=== PATIENT | male | born 1950 | race Caucasian/White ===

== ENCOUNTER 2018-02-17 09:37 | Outpatient (CLI) | payer MEDICARE, OTHER ==
[2018-02-17 10:28] LABS: Estimated GFR-MDRD - POC Greater than 90
--- NOTE | 2018-02-17 12:07 | CT ---
CT OF THE ABDOMEN AND PELVIS WITH CONTRAST: Comparison: None. History: Prostate cancer, status post prostatectomy. Rising PSA. Technique: Multiple contiguous axial images were obtained in a CT of the abdomen and pelvis with cont rast. PO contrast was administered. Coronal reformats were performed. FINDINGS: There are subcentimeter hyperdensities in the liver which are too small to definitely characterize bu t likely represent small cysts. The gallbladder, kidneys, adrenal glands, spleen, and pancreas are un remarkable. No free air, free fluid, or stranding changes are seen in the abdomen or pelvis. The large and small bowel are unremarkable. The appendix is normal. Prostate appears to have been rem lyla. No abdominal or pelvic lymphadenopathy are appreciated. Mild degenerative changes are seen in the spine. No suspicious osseous lesions are identified. Visual ized inferior thorax and abdominal wall soft tissues are unremarkable. IMPRESSION: 1. Hepatic cysts. 2. Status post prostatectomy without evidence of recurrent or metastatic disease. POS: [facility]
--- NOTE | 2018-02-17 14:26 | NM ---
WHOLE BODY BONE SCAN: Date: 02/17/18 HISTORY: Malignant neoplasm of the prostate with rising PSA. TECHNIQUE: Whole body bone scan was performed after administration of 33 mCi technetium-99m sestamibi. FINDINGS: Soft tissue activity is unremarkable. Increased uptake is seen in feet, likely secondary to degenerat vielka change. Uptake is seen in both hips, which likely represents degenerative change, right greater t landers left. No suspicious osseous abnormality was seen in the right hip on recent CT and degenerative c hange only was seen in the right hip. Increased uptake in the upper chest likely represents sternoclavicular degenerative change. IMPRESSION: No evidence of osseous metastatic disease. POS: [facility]
[2018-02-17] MEDS ORDERED: Iopamidol 370 76% 100 ML VIAL ONE (15:50)
[2018-02-17] MEDS ORDERED: Iopamidol 370 76% 50 ML VIAL FS ONE (15:50)
== END 2018-02-17 09:38 | disposition home or self-care (01) ==
LOC: CT 09:37
PROVIDERS: ATTEND Radiology Radiation Oncology
DX: C61 Malignant neoplasm of prostate (principal); K76.89 Other specified diseases of liver
CPT/HCPCS: 74177; 78306; 82565; A9503

== ENCOUNTER 2018-06-03 09:22 | Outpatient (CLI) | payer MEDICARE ==
[2018-06-03 10:54] LABS: #Basophils 0.1 thou/uL (0.0-0.2); #Eosinphils 0.5 thou/uL (0.0-0.7); #Lymphocytes 0.9 thou/uL (1.20-3.40); #Monocytes 0.9 thou/uL (0.11-0.59); #Neutrophils 5.2 thou/uL (1.40-6.50); %Basophils 0.7 % (0.0-1.0); %Eosinophils 6.6 % (0.0-10.0); %Lymphocytes 12.2 % (21.0-51.0); %Monocytes 11.6 % (0.0-10.0); %Neutrophils 68.9 % (42.0-75.0); Hemoglobin 12.8 g/dL (14.0-18.0); Mean Corpuscular HGB CONC 34.9 g/dL (32.0-36.0); Mean Corpuscular Hemoglobin 30.3 pg (27.0-31.0); Mean Corpuscular Volume 86.8 fL (78.0-98.0); Mean Platelet Volume 6.6 fL (7.4-10.4); Platelet Count 397 thou/uL (130-400); RBC Distribution Width 12.2 % (11.5-14.5); Red Blood Cell (RBC) Count 4.23 mill/uL (4.70-6.10); White Blood Cell (WBC) Count 7.6 thou/uL (4.8-10.8)
[2018-06-03 10:58] LABS: PTT 28.1 SEC (22.9-36.1); Prothrombin Time 13.4 SEC (12.0-14.7)
[2018-06-03 11:14] LABS: Anion Gap 14 mmol/L (10-20); BUN (Urea Nitrogen) 16 mg/dL (8.4-25.7); Calc. Creatinine Clearance 0 mL/min (70-130); Calcium 9.7 mg/dL (7.8-10.44); Carbon Dioxide 26 mmol/L (23-31); Chloride 101 mmol/L (98-107); Estimated GFR-MDRD Greater than 90; Glucose 83 mg/dL (80-115); Sodium 137 mmol/L (136-145)
== END 2018-06-03 09:23 | disposition home or self-care (01) ==
LOC: LABBT 09:22
PROVIDERS: ATTEND Surgery
DX: Z01.818 Encounter for other preprocedural examination (principal); M48.061 Spinal stenosis, lumbar region without neurogenic claudication; M54.16 Radiculopathy, lumbar region
CPT/HCPCS: 80048; 85025; 85610; 85730; 93005; 93010

== ENCOUNTER 2018-06-12 05:39 | Inpatient (IN) | payer MEDICARE ==
[2018-06-03 09:52] VITALS: BMI 31.8
[2018-06-12] MEDS ORDERED: CEFAZOLIN/Water 2 GM/20 ML SYRINGE ONE (06:20)
[2018-06-12] MEDS ORDERED: Sodium Chloride 0.9% 10 ML ONE (06:25)
[2018-06-12] MEDS ORDERED: Thrombin 5000 UNITS/5 ML VIAL ONE ×2 (06:25→10:49)
[2018-06-12] MEDS ORDERED: Bacitracin Zinc Ointment 30 gm TUBE ONE (06:25)
[2018-06-12] MEDS ORDERED: Heparin 0 ML ONE (06:53)
[2018-06-12] MEDS ORDERED: Midazolam HCl 2 mg/2 ml Vial ONE (07:11)
[2018-06-12] MEDS ORDERED: Fentanyl 100 MCG/2 ML VIAL ONE ×2 (07:47→10:46)
[2018-06-12] MEDS ORDERED: Morphine Sulfate 2 MG/ML SYRINGE SLOW IVP PRN (11:14)
[2018-06-12] MEDS ORDERED: Promethazine HCl 25 MG/ML VIAL IM PRN ×2 (11:14→12:11)
[2018-06-12] MEDS ORDERED: HYDROmorphone 2 MG/ML VIAL SLOW IVP PRN (11:14)
[2018-06-12] MEDS ORDERED: Ondansetron HCl/PF 4 MG/2 ML Vial IVP PRN (11:14)
[2018-06-12] MEDS ORDERED: Promethazine HCl 25 MG/ML VIAL SLOW IVP PRN (11:14)
[2018-06-12] MEDS ORDERED: Meperidine HCl/PF 25 MG/ML VIAL SLOW IVP PRN (11:14)
[2018-06-12] MEDS ORDERED: Mag-Al 1200 mg/1200 mg/30 ML UDCUP PO PRN (12:11)
[2018-06-12] MEDS ORDERED: Bisacodyl 10 MG SUPP PR PRN (12:11)
[2018-06-12] MEDS ORDERED: Acetaminophen/Codeine 30-300mg Tablet PO PRN (12:11)
[2018-06-12] MEDS ORDERED: Milk Of Magnesia 30 ML UDCUP PO PRN (12:11)
[2018-06-12] MEDS ORDERED: Fleet Enema 133 ML BOT PR PRN (12:11)
[2018-06-12] MEDS ORDERED: traMADol HCl 50 MG TAB PO PRN (12:11)
[2018-06-12] MEDS ORDERED: Acetaminophen 325 MG TAB PO PRN (12:11)
[2018-06-12] MEDS ORDERED: Phenylephrine HCL 10 MG/ML VIAL ONE (12:22)
[2018-06-12] MEDS ORDERED: PHENYLEPHRINE-NS 100 MCG/ML 10 ML SYRINGE ONE ×2 (12:46→14:17)
--- NOTE | 2018-06-12 12:48 | OP ---
DATE OF PROCEDURE: 06/12/2018 OR: OR #11. WOUND TYPE: Type 1 wound. SURGEON: Mark Wu M.D. SITE SUPERVISOR: Preston Ames PA-C. PREPROCEDURE DIAGNOSES: L4-5 stenosis with L4 radiculopathy with L5-S1 stenosis with spondylolisthes is and L5 on S1 spondylolisthesis. POSTPROCEDURE DIAGNOSES: L4-5 stenosis with L4 radiculopathy with L5-S1 stenosis with spondylolisthe sis and L5 on S1 spondylolisthesis. PROCEDURE: 1. L4-L5 laminectomy, partial facetectomy, foraminotomies of the L4-L5 nerve roots. 2. L5-S1 laminectomy, partial facetectomy, foraminotomies over the L5-S1 nerve roots. 3. L5-S1 posterior lateral fusion with local bone autograft obtained from same incision BMP. 4. Pedicle screw jp fixation, L5-S1. DESCRIPTION OF PROCEDURE: After informed consent was obtained from the patient, the patient brought to OR 11. Proper patient pause and identification was carried out. He was placed in excellent endot magdalena anesthesia and positioned prone on the OR table. All appropriate points were padded. We jesse ntified the L4-S1 segments and this area sterilely cleansed, prepared, and draped following the makin g of a linear tatiana. The wound was then opened in a combination of sharp, monopolar blunt dissection. Following proper patient pause and identification, the L4, L5, S1 dorsal spines lamina along with t he facet complexes were exposed. The transverse process and sacral ala were exposed at L5-S1. A loc alization film confirmed our area of interest. We then performed L4-S1 laminectomies, partial facete ctomies and foraminotomies with resection of the pars at L5 to decompress completely the L5 nerve zachary ts bilaterally. We then turned our attention to placement of screw jp fixation at L5-S1. I did ass ess to see if any diskectomy needed to be performed for interbody arthrodesis, but the disk was quite calcified and osteophytic and as such, I did not feel it necessary. He also had a large bridging jacob ne spur anteriorly so attempts at fusion were already trying to be obtained. I then performed a scre w jp fixation at L5-S1. I was satisfied with both gross and fluoroscopic placement of the construct . Rods were then placed and final tightening occurred. Copious irrigation maximizing hemostasis occ urred throughout. Decortication of the posterolateral regions was performed and local bone autograft obtained from same incision, and BMP was placed out in the lateral regions and in the posterior late ral regions. A small amount of DuraSeal was placed over the dural tube for protection, although ther e was no CSF leak and copious irrigation occurred throughout. Maximizing hemostasis occurred through out as well. The wound was then closed in anatomic layers following sprinkling of vancomycin powder. The patient then emerged from anesthesia.
[2018-06-12] MEDS ORDERED: Albumin 25% 100 ML ONE (12:55)
[2018-06-12] MEDS ORDERED: Metoclopramide HCl 10 MG/2 ML VIAL ONE (14:17)
[2018-06-12] MEDS ORDERED: ePHEDrine/0.9% NaCl/PF SYRINGE 50 mg/10 ml ONE (14:17)
[2018-06-12] MEDS ORDERED: Ondansetron HCl/PF 4 MG/2 ML Vial ONE (14:17)
[2018-06-12] MEDS ORDERED: Lidocaine 1% PF 5 ML VIAL ONE ×2 (14:17)
[2018-06-12] MEDS ORDERED: Dexamethasone 20 MG/5 ML VIAL ONE (14:17)
[2018-06-12] MEDS ORDERED: Glycopyrrolate 0.2 MG/ML 5 ML SYRINGE ONE (14:17)
[2018-06-12] MEDS ORDERED: PROPOFOL 200 MG/20 ML VIAL ONE (14:17)
[2018-06-12] MEDS: CEFAZOLIN/Water 2 GM/20 ML SYRINGE SLOW IVP SCH ×2 (16:27→20:35)
[2018-06-12] MEDS: Sodium Chloride 0.9% 1,000 ML IV SCH ×2 (16:27→20:42)
[2018-06-12] MEDS: tiZANidine HCl 4 MG TAB PO PRN ×2 (16:29→22:08)
[2018-06-12] MEDS: HYDROcodone/Acetaminophen 7.5/325 mg Tablet PO PRN ×2 (16:29→22:07)
[2018-06-13] MEDS: CEFAZOLIN/Water 2 GM/20 ML SYRINGE SLOW IVP SCH (04:55)
[2018-06-13] MEDS: HYDROcodone/Acetaminophen 7.5/325 mg Tablet PO PRN ×5 (04:55→22:13)
[2018-06-13] MEDS: tiZANidine HCl 4 MG TAB PO PRN ×2 (04:55→19:54)
[2018-06-13] MEDS: Lisinopril 20 MG TAB PO SCH (09:15)
[2018-06-13] MEDS: Rosuvastatin 10 MG TAB PO SCH (09:15)
[2018-06-13] MEDS: Venlafaxine HCl XR 75 MG CAP PO SCH (09:16)
[2018-06-13] MEDS: Calcium Carbonate + Vit D 1 TAB PO SCH (09:16)
--- NOTE | 2018-06-13 11:16 | PRG ---
DATE OF SERVICE: 06/13/2018 Manish Anglin is postop day 1 from L4-S1 laminectomy, partial facetectomy, foraminotomies with L5-S1 fu yancy for L5 spondylolysis and L5 on S1 spondylolisthesis. He states his leg pain has resolved compar ed to before surgery. He is mobilizing. We will work on effective pain control today. I anticipate dismissal potentially tomorrow.
[2018-06-13] MEDS: Sodium Chloride 0.9% 1,000 ML IV SCH ×2 (14:25→23:37)
[2018-06-14] MEDS: HYDROcodone/Acetaminophen 7.5/325 mg Tablet PO PRN ×3 (02:12→11:51)
[2018-06-14] MEDS: tiZANidine HCl 4 MG TAB PO PRN (02:12)
[2018-06-14] MEDS: Calcium Carbonate + Vit D 1 TAB PO SCH (09:20)
[2018-06-14] MEDS: Lisinopril 20 MG TAB PO SCH (09:20)
[2018-06-14] MEDS: Rosuvastatin 10 MG TAB PO SCH (09:21)
[2018-06-14] MEDS: Venlafaxine HCl XR 75 MG CAP PO SCH (09:21)
--- NOTE | 2018-06-14 10:31 | PRG ---
DATE OF SERVICE: 06/14/2018 Mr. Anglin is on the second day of his hospital stay, status post lumbar laminectomy and fusion. He is overall doing very well. He does have some discomfort just above his tailbone centrally. He has been up walking with a walker and has been at home for preparations for discharge. We will anticipat e getting him out today. I have discussed with them checking on which pain medicine that he has, bec ause his pharmacy closes at noon on Saturdays. I will check with the nurse and help arrange that goi ng forward. I will anticipate seeing him in 2 weeks. Primitivo Puckett PA-C. dictating for Dr. Daly.
[2018-06-14 11:57] VITALS: BP 140/69; TEMP 98.3
== END 2018-06-14 13:06 | disposition home or self-care (01) | DRG 460 ==
LOC: SDC 05:39 → EDSTATUS 09:30 → SJJU 13:59
PROVIDERS: ADMIT Surgery; ATTEND Surgery
PROC: 0SG30AJ Fusion of Lumbosacral Joint with Interbody Fusion Device, Posterior Approach, Anterior Column, Open Approach (ICD-10-PCS; principal; 2018-06-12)
PROC: 00NY0ZZ Release Lumbar Spinal Cord, Open Approach (ICD-10-PCS; 2018-06-12)
PROC: 3E0U0GB Introduction of Recombinant Bone Morphogenetic Protein into Joints, Open Approach (ICD-10-PCS; 2018-06-12)
DX: M48.061 Spinal stenosis, lumbar region without neurogenic claudication (principal); M54.16 Radiculopathy, lumbar region; M43.16 Spondylolisthesis, lumbar region; M43.06 Spondylolysis, lumbar region
CPT/HCPCS: 76001; A4216; C1713; J0131; J1100; J1644; J2001; J2250; J2370; J2405; J2704; J2765; J3010; J3370; J3490; P9047

== ENCOUNTER 2018-08-01 08:43 | Outpatient (CLI) | payer MEDICARE ==
--- NOTE | 2018-08-01 09:58 | RAD ---
LUMBAR SPINE 2 VIEWS: Date: 08/01/18 HISTORY: Low back pain. Prior surgery. FINDINGS: There are five lumbar-type vertebrae. Bilateral pedicle screws and vertical rods at the L5-S1 level w ithout perihardware lucency. Other pedicles are intact. Mild rightward convex rotatory scoliotic curv ature. Moderate osteophytosis throughout the vertebral bodies and facets. Postoperative changes of th e pelvis. IMPRESSION: Postoperative and degenerative changes lumbar spine. No evidence of hardware complication. POS: [facility]
== END 2018-08-01 08:44 | disposition home or self-care (01) ==
LOC: TBSIIMAG 08:43
PROVIDERS: ATTEND Surgery
DX: M43.16 Spondylolisthesis, lumbar region (principal); M47.896 Other spondylosis, lumbar region; Z98.890 Other specified postprocedural states
CPT/HCPCS: 72100

== ENCOUNTER 2020-04-14 13:00 | Outpatient (CLI) | payer MEDICARE ==
[2020-04-14] MEDS ORDERED: Magnevist 469MG/ML 20 ML VIAL ONE (13:20)
--- NOTE | 2020-04-14 15:12 | RAD ---
LUMBAR SPINE: 04/14/20 Four views. HISTORY: Low back pain. Pedicle screws are seen in place at L5-S1. Vertebral body height is maintained. Alignment appears pre served with flexion and extension. Degenerative changes are noted. IMPRESSION: Postoperative and degenerative changes of lumbar spine noted. POS: [facility]
[2020-04-14 15:31] LABS: Estimated GFR-MDRD - POC Greater than 90
--- NOTE | 2020-04-14 19:33 | CT ---
CT LUMBAR SPINE WITHOUT CONTRAST: 04/14/20 INDICATIONS: Low back pain without contrast. INDICATIONS: Low back pain. Prior lumbar surgery two years ago. Right lower extremity radiculopathy. FINDINGS: The lumbar vertebra maintain height. There is mild degenerative disc changes at all levels. Loss of d isc space is more prominent at L5-S1. There is a mild grade I anterolisthesis at L5-S1. Posterior lamb inectomy changes at L5-S1. Pedicle screws are in place at L5-S1. Findings at each disc level describe d. L1-2: No significant disc bulge. No central canal or foraminal stenosis. L2-3: Mild disc bulge. Mild facet hypertrophy. Mild central canal stenosis. L3-4: Mild diffuse disc bulge. Moderate facet and ligamentous hypertrophy. Moderate central canal sonia nosis. L4-5: Posterior laminectomy change. No evidence of significant disc bulge or protrusion. Bilateral fo raminal stenosis more pronounced on the right. L5-S1: Posterior laminectomy change. Mild anterolisthesis as noted above. No significant central jluiane l stenosis. Bilateral foraminal stenosis. Pedicle screws appear adequately positioned at L5 and S1. No evidence of loosening. IMPRESSION: Postop changes at L4-5 an L5-S1 as described above. Central canal and foraminal stenosis noted as kayla cribed. POS: [facility]
--- NOTE | 2020-04-14 21:00 | MRI ---
MRI LUMBAR SPINE WITH AND WITHOUT CONTRAST: 04/14/20 INDICATIONS: Low back pain. Radiculopathy. FINDINGS: Lumbar vertebrae maintain height. There is a mild anterolisthesis at L5-S1. Vertebral body signal is normal with mild degenerative end plate changes. Findings at each level: L1-2: Mild disc bulge. Mild facet hypertrophy. Very mild central canal stenosis. L2-3: Mild diffuse disc bulge. Facet arthrosis and hypertrophy. Mild central canal stenosis. L3-4: Broad based disc bulge. Facet arthrosis and hypertrophy. Posterior epidural fat. Mild to modera te central canal stenosis. L4-5: Mild diffuse disc bulge. Posterior laminectomy change. Pedicle screws at L5. No significant hi tral canal stenosis. Bilateral foraminal stenosis. L5-S1: Anterolisthesis. Disc bulge. No significant central canal stenosis. Bilateral foraminal stenos is. There are circumscribed fluid collections seen posteriorly at the laminectomy site extending from L4- 5 disc to the L5-S1 disc. The largest of these measures approximately 1.5 cm. There are two collectio ns measuring in the 0.8 cm range and there is evidence of several other tiny fluid foci within this r egion. All of these show peripheral enhancement. The overall dimensions including all the fluid colle ctions measures 3.5 cm craniocaudal in the sagittal plane by 1.6 cm AP dimension. This fluid collection is not appreciated on the CT performed earlier today. IMPRESSION: 1. Postoperative changes at L4-5. There is fluid collection seen posteriorly at the operative si te extending to the epidural space. There are several circumscribed fluid collections with the larger measuring up to 1.5 cm as described above. There is peripheral enhancement. Abscess at the operativ e site should be excluded. 2. Findings at each disc level are described with mild central canal stenosis and foraminal sten osis at several levels. These correspond to the CT findings. Dr. Wu is being paged for notification of this finding at the time of dictation. Note: Findings relayed to Dr. Wu's office by phone and instructional interventionist physician is paged. POS: [facility]
== END 2020-04-14 13:01 | disposition home or self-care (01) ==
LOC: BICCT 13:00 → MRI 13:01
PROVIDERS: ATTEND Surgery
DX: M43.16 Spondylolisthesis, lumbar region (principal); M48.061 Spinal stenosis, lumbar region without neurogenic claudication; M47.816 Spondylosis without myelopathy or radiculopathy, lumbar region; Z98.890 Other specified postprocedural states
CPT/HCPCS: 72110; 72131; 72158; 82565; A9579

== ENCOUNTER 2020-11-23 07:05 | Outpatient (CLI) | payer MEDICARE ==
[2020-11-24 08:45] LABS: SARS-CoV-2 PCR by NAA Not Detected (NotDetected)
== END 2020-11-23 07:06 | disposition home or self-care (01) ==
LOC: LABBT 07:05
PROVIDERS: ATTEND Specialist
DX: Z01.812 Encounter for preprocedural laboratory examination (principal); Z20.822 Contact with and (suspected) exposure to COVID-19
CPT/HCPCS: U0003; U0005; 87635

== ENCOUNTER 2020-11-28 07:35 | Day surgery (SDC) | payer MEDICARE ==
[2020-11-25 10:07] VITALS: BMI 25.5
[2020-11-28] MEDS ORDERED: Bupivacaine PF 0.5% 30 ML VIAL ONE (10:08)
[2020-11-28] MEDS ORDERED: EPINEPHrine 1 MG/ML AMP ONE (10:08)
[2020-11-28] MEDS ORDERED: Fentanyl 100 MCG/2 ML VIAL ONE (10:15)
[2020-11-28] MEDS ORDERED: Midazolam HCl 2 mg/2 ml Vial ONE (10:16)
--- NOTE | 2020-11-28 14:17 | RAD ---
Intraoperative imaging thoracic spine: 11/28/2020 HISTORY: Dorsal column stimulator FINDINGS: A single coned down frontal radiograph of the thoracic spine demonstrates midline dorsal co lumn stimulating leads overlying the superior endplate of what is labeled as the T8 vertebral body. IMPRESSION: Dorsal column stimulators as above.
--- NOTE | 2020-11-30 08:22 | OP ---
DATE OF PROCEDURE: 11/28/2020 PREOPERATIVE DIAGNOSES: 1. Post-laminectomy syndrome. 2. Chronic pain syndrome. 3. Lumbar radiculopathy. POSTOPERATIVE DIAGNOSES: 1. Post-laminectomy syndrome. 2. Chronic pain syndrome. 3. Lumbar radiculopathy. PROCEDURES PERFORMED: 1. Spinal cord stimulator generator implant. 2. Spinal cord stimulator lead implant x2. DESCRIPTION OF PROCEDURE: The patient was taken to the procedure room and placed prone on the procedure room table. A time-out was performed. The back was prepped with DuraPrep. Sterile drapes were applied. Using fluoroscopy, we located the T12-L1 interspace. We anesthetized the skin and made an incision with a 10-blade scalpel vertically. We blunt dissected down to fascia and then inserted a supplied 14-gauge Touhy needle in a paramedian fashion to engage in the ligament. We used loss of resistance to air to achieve access to the epidural space. This was negative for aspiration for heme or CSF. We then threaded an 8 contact Medtronic lead up the midline dorsal epidural space at the top of T8. We placed a contralateral lead using the exact same procedure on the other side to have two leads parallel. Stimulation was then performed with the patient awake and the patient noted paresthesia in all pain areas. We then took the needles and the stylets out taking care not to move the leads. Anchors were placed over the leads and brought down to fascia. We used 2-0 silk suture x2 to fixate those anchors to the fascia for each lead. Fluoroscopy showed that the leads had been moved. At that point, we created a tension relief loop and anesthetized a pocket area in the left upper buttock. We made an incision, blunt dissected this down to José Luis fascia and created a pocket superior and inferior to this. We used a tunneling device to make a tunnel between the two pockets. We slid the leads through the tunneling device, brought it to the battery pocket, connected them to the battery using a torque wrench and then impedances were checked which were all good. The battery was placed inside the pocket. The fascial layers were approximated using 2-0 Vicryl sutures in a simple interrupted and horizontal mattress stitch. We then used 3-0 Rapide for subcuticular stitch. [place] were used to reinforce this as the skin was not coming together as well as I wanted. Telfa was placed over this, sterile 4x4s and Medipore tape, and the patient was taken to the Day Stay under stable condition. Job ID: [id number]
== END 2020-11-28 13:25 | disposition home or self-care (01) ==
LOC: SDC 07:35
PROVIDERS: ATTEND Specialist
PROC: 0JH70BZ Insertion of Single Array Stimulator Generator into Back Subcutaneous Tissue and Fascia, Open Approach (ICD-10-PCS; principal; 2020-11-28)
PROC: 00HU3MZ Insertion of Neurostimulator Lead into Spinal Canal, Percutaneous Approach (ICD-10-PCS; 2020-11-28)
DX: M96.1 Postlaminectomy syndrome, not elsewhere classified (principal); G89.4 Chronic pain syndrome; M51.16 Intervertebral disc disorders with radiculopathy, lumbar region; M51.14 Intervertebral disc disorders with radiculopathy, thoracic region; Z79.899 Other long term (current) drug therapy
CPT/HCPCS: 63650 ×2; 63685; 72070; 76000; C1778; C1787; L8679; L8689; J0171; J0690; J2250; J3010; S0020

== ENCOUNTER 2023-06-27 09:38 | Day surgery (SDC) | payer MEDICARE ==
[2023-06-25 12:19] VITALS: BMI 29.7
[2023-06-27] MEDS ORDERED: Lidocaine 1% MPF 2 ML VIAL ONE (12:00)
[2023-06-27] MEDS ORDERED: Lidocaine 2% PF 5 ML VIAL ONE (12:00)
[2023-06-27] MEDS ORDERED: Bupivacaine PF 0.5% 30 ML VIAL ONE (12:00)
[2023-06-27] MEDS ORDERED: EPINEPHrine 1 MG/ML AMP ONE (12:00)
[2023-06-27] MEDS ORDERED: Vancomycin 1 GM VIAL ONE (12:11)
[2023-06-27] MEDS ORDERED: Sodium Chloride 0.9% 100 ML ONE (12:21)
[2023-06-27] MEDS ORDERED: CEFAZOLIN 2 GM VIAL ONE (12:21)
[2023-06-27] MEDS ORDERED: fentaNYL 50 mcg/mL 1 mL Vial ONE ×2 (12:49→14:27)
[2023-06-27] MEDS ORDERED: Midazolam HCl 2 mg/2 ml Vial ONE ×3 (12:49→14:32)
== END 2023-06-27 16:47 | disposition home or self-care (01) ==
LOC: SDC 09:38
PROVIDERS: ATTEND Specialist
PROC: 00W Central Nervous System and Cranial Nerves, Revision (ICD-10-PCS; principal; 2023-06-27)
DX: M54.16 Radiculopathy, lumbar region (principal); M96.1 Postlaminectomy syndrome, not elsewhere classified; G89.4 Chronic pain syndrome
CPT/HCPCS: 63663; 72070; C1713; C1778 ×2; C1787; J3010; 72020; J0171; J2001; J2250; J3370; J3490; S0020